=== PATIENT | female | born 1980 | race Caucasian/White ===

== ENCOUNTER 2017-04-21 10:17 | Day surgery (SDC) | END 2017-04-21 15:45 | disposition home or self-care (01) ==

== ENCOUNTER 2017-05-02 11:41 | Emergency (ER) | END 2017-05-02 16:02 | disposition home or self-care (01) ==

== ENCOUNTER 2018-11-30 08:48 | Outpatient (CLI) | payer OTHER ==
[~2018-11-30] VITALS: Ht 152.4 cm; Wt 64.9 kg
[~2018-11-30 08:48] MED LIST: NITR-58 PO; PREN1TAB71 PO; URSO300C3 PO
[2018-11-30 09:20] VITALS: Ht 152.4 cm; Wt 64.9 kg
[2018-11-30 09:21] VITALS: BP 107/57; PULSE 72; RESP 18
== END 2018-11-30 10:45 | disposition home or self-care (01) ==
LOC: OBT 08:48 → L-D 08:48 → OBT 10:45
PROVIDERS: ATTEND Obstetrics & Gynecology
DX: O62.9 Abnormality of forces of labor, unspecified (principal); Z3A.29 29 weeks gestation of pregnancy
CPT/HCPCS: 76818; 80053; 82575; 84156; 84560; 85025; 85384; 85610; 85730; Z7500; G0463

== ENCOUNTER 2018-12-01 15:25 | Outpatient (CLI) | payer OTHER ==
[~2018-12-01] VITALS: Ht 152.4 cm; Wt 64.7 kg
[2018-12-01 18:16] VITALS: BP 103/51; PULSE 76; RESP 18; Ht 152.4 cm; Wt 64.7 kg
[2018-12-01] MEDS ORDERED: ACETAMINOPHEN 325 MG TAB PO ONE (18:30)
== END 2018-12-01 20:30 | disposition home or self-care (01) ==
LOC: OBT 15:25 → L-D 15:26 → OBT 20:30
PROVIDERS: ATTEND Obstetrics & Gynecology
DX: O26.893 Other specified pregnancy related conditions, third trimester (principal); Z3A.29 29 weeks gestation of pregnancy; R51 Headache
CPT/HCPCS: 80053; 81001; 83615; 83625; 85025; Z7500; Z7610; G0463

== ENCOUNTER 2018-12-03 11:33 | Outpatient (CLI) | payer OTHER ==
[~2018-12-03] VITALS: Ht 152.4 cm; Wt 64.5 kg
[2018-12-03 12:08] VITALS: Ht 152.4 cm; Wt 64.5 kg
[2018-12-03 12:09] VITALS: BP 109/56; PULSE 18; RESP 18
== END 2018-12-03 17:17 | disposition home or self-care (01) ==
LOC: L-D 11:33 → OBT 11:33
PROVIDERS: ATTEND Obstetrics & Gynecology
DX: O26.893 Other specified pregnancy related conditions, third trimester (principal); Z3A.30 30 weeks gestation of pregnancy; N89.8 Other specified noninflammatory disorders of vagina
CPT/HCPCS: 76817; 76818; 81003; 85025; 87086; Z7500; G0463